=== PATIENT | male | born 1940 | race Caucasian/White ===

== ENCOUNTER 2017-03-07 22:06 | Emergency (ER) | payer MEDICARE | END 2017-03-07 22:25 | disposition left against medical advice (07) | LOC: DL.ED 22:06 | DX: Z53.21 Procedure and treatment not carried out due to patient leaving prior to being seen by health care provider (principal) ==

== ENCOUNTER 2021-07-02 16:05 | Emergency (ER) | payer OTHER, MEDICARE ==
[2021-07-02 16:31] VITALS: BP 100/72
[2021-07-02 17:30] LABS: ANION GAP 13.2 mEq/L (7-13)
[2021-07-02] MEDS ORDERED: predniSONE 20 MG Tab PO ONE (17:43)
[2021-07-02] MEDS ORDERED: Colchicine 0.6 MG Tab PO ONE ×2 (17:43→17:44)
[2021-07-02 18:45] VITALS: PULSE 78
== END 2021-07-02 18:16 | disposition home or self-care (01) ==
LOC: DL.ED 16:05
DX: M10.9 Gout, unspecified (principal); I10 Essential (primary) hypertension; I25.2 Old myocardial infarction; E11.9 Type 2 diabetes mellitus without complications; Z91.040 Latex allergy status; Z79.82 Long term (current) use of aspirin
CPT/HCPCS: 36415; 73130-RT; 80053; 84550; 85025; 86140; 99283-25; A9270-GY; J7512

== ENCOUNTER 2021-12-11 14:08 | Inpatient (IN) | payer MEDICARE ==
[2021-12-11] MEDS ORDERED: Acetaminophen 325 MG Tab PO PRN (15:11)
[2021-12-11] MEDS ORDERED: Ondansetron 4 MG Tab.DIS PO PRN (15:11)
[2021-12-11] MEDS ORDERED: Glucagon,Human Recombinant 1 MG Vial IM PRN (15:22)
[2021-12-11] MEDS ORDERED: 50% Dextrose in Water 50 ML Syringe IVPUSH PRN (15:22)
[2021-12-11] MEDS ORDERED: Albuterol 0.021% 0.63 MG/3 ML Neb Soln INH PRN (15:24)
[2021-12-11] MEDS ORDERED: hydrALAZINE 20 MG/ML SDV IVPUSH PRN (15:26)
[2021-12-11] MEDS ORDERED: [UNRECOGNIZED DRUG - OTHER] INJECT SCH (15:30)
[2021-12-11] MEDS ORDERED: CYANOCOBALAMIN 1000 MCG/ML INJECT SCH (15:30)
[2021-12-11 16:01] LABS: ANION GAP 16.7 mEq/L (7-13); CHLORIDE,CL 102 mmol/L (98-107); PTT,PARTIAL THROMBOPLSTIN TIME 31.2 SEC (22.0-34.0); SODIUM,NA 140 mmol/L (136-145)
[2021-12-11 16:03] LABS: ESTIMATED GFR 15 mL/min (>=60)
[2021-12-11] MEDS: Insulin Lispro 100 Units/ML 3 ML Vial SUBCUT SCH (17:15)
[2021-12-11] MEDS: oxyCODONE 5 MG Tab PO PRN (19:48)
[2021-12-11] MEDS: Gemfibrozil 600 MG Tab PO SCH (20:48)
[2021-12-11] MEDS: Oxybutynin 5 MG Tab.ER PO SCH (20:48)
[2021-12-12] MEDS: Sodium Chloride 0.9% 10 ML Syringe FLUSH PRN (00:25)
[2021-12-12] MEDS: Morphine 2 MG/ML SYRINGE IVPUSH PRN ×2 (00:25→22:20)
[2021-12-12] MEDS: Insulin Lispro 100 Units/ML 3 ML Vial SUBCUT SCH ×5 (00:26→20:47)
[2021-12-12] MEDS: oxyCODONE 5 MG Tab PO PRN ×4 (02:58→23:09)
[2021-12-12 07:32] LABS: HEMOGLOBIN A1C 5.9 % (<5.7)
[2021-12-12] MEDS ORDERED: Albuterol 6.7 GM Inhaler INH PRN (07:57)
[2021-12-12] MEDS ORDERED: Ferrous Sulfate Drops 15 MG/ML 50 ML Bottle PO SCH (09:00)
[2021-12-12] MEDS: Gemfibrozil 600 MG Tab PO SCH ×2 (09:52→20:37)
[2021-12-12] MEDS: Oxybutynin 5 MG Tab.ER PO SCH ×2 (09:52→20:41)
[2021-12-12] MEDS: Cholecalciferol (Vitamin D3) 25 MCG Tab PO SCH (09:52)
[2021-12-12] MEDS: Sodium Bicarbonate 650 MG Tab PO SCH ×2 (09:53→20:36)
[2021-12-12] MEDS: Finasteride 5 MG Tab PO SCH (09:53)
[2021-12-12] MEDS: Famotidine 20 MG Tab PO SCH (09:53)
[2021-12-12] MEDS: Metoprolol Tartrate 50 MG Tab PO SCH ×2 (09:57→20:37)
[2021-12-12] MEDS ORDERED: Colchicine 0.6 MG Tab PO ONE (12:34)
[2021-12-12] MEDS ORDERED: Pantoprazole 40 MG Tab.CR PO SCH (12:45)
[2021-12-12] MEDS: predniSONE 10 MG Tab PO SCH (13:16)
[2021-12-12] MEDS: Pantoprazole 40 MG Tab.CR PO SCH (13:19)
[2021-12-12] MEDS: atorvaSTATin 10 MG Tab PO SCH (20:37)
[2021-12-12] MEDS: Tamsulosin 0.4 MG Cap.ER PO SCH (20:39)
[2021-12-12] MEDS ORDERED: Tamsulosin 0.4 MG Cap.ER PO SCH (21:00)
[2021-12-13] MEDS: Pantoprazole 40 MG Tab.CR PO SCH (06:37)
[2021-12-13] MEDS: oxyCODONE 5 MG Tab PO PRN ×2 (06:38→21:15)
[2021-12-13] MEDS: Insulin Lispro 100 Units/ML 3 ML Vial SUBCUT SCH ×4 (09:25→21:30)
[2021-12-13] MEDS: Gemfibrozil 600 MG Tab PO SCH ×2 (09:27→21:23)
[2021-12-13] MEDS: Sodium Bicarbonate 650 MG Tab PO SCH ×2 (09:29→21:22)
[2021-12-13] MEDS: Metoprolol Tartrate 50 MG Tab PO SCH ×2 (09:29→21:27)
[2021-12-13] MEDS: Cholecalciferol (Vitamin D3) 25 MCG Tab PO SCH (09:29)
[2021-12-13] MEDS: predniSONE 10 MG Tab PO SCH (09:30)
[2021-12-13] MEDS: Oxybutynin 5 MG Tab.ER PO SCH ×2 (09:31→21:25)
[2021-12-13] MEDS: Finasteride 5 MG Tab PO SCH (09:31)
[2021-12-13] MEDS: Famotidine 20 MG Tab PO SCH (09:32)
[2021-12-13] MEDS: Colchicine 0.6 MG Tab PO SCH ×3 (11:14→23:20)
[2021-12-13] MEDS ORDERED: Fludrocortisone 0.1 MG Tab PO SCH (14:00)
[2021-12-13] MEDS: Morphine 2 MG/ML SYRINGE IVPUSH PRN (16:33)
[2021-12-13] MEDS: Sodium Chloride 0.9% 10 ML Syringe FLUSH PRN (16:35)
[2021-12-13] MEDS: atorvaSTATin 10 MG Tab PO SCH (21:23)
[2021-12-13] MEDS: Tamsulosin 0.4 MG Cap.ER PO SCH (21:26)
[2021-12-14] MEDS: Sodium Chloride 0.9% 10 ML Syringe FLUSH PRN (01:30)
[2021-12-14] MEDS: Morphine 2 MG/ML SYRINGE IVPUSH PRN (01:30)
[2021-12-14] MEDS: Colchicine 0.6 MG Tab PO SCH ×4 (06:30→23:02)
[2021-12-14] MEDS: Pantoprazole 40 MG Tab.CR PO SCH (06:30)
[2021-12-14 07:49] LABS: ANION GAP 16.5 mEq/L (7-13)
[2021-12-14] MEDS ORDERED: Allopurinol 100 MG Tab PO SCH (08:00)
[2021-12-14] MEDS: Insulin Lispro 100 Units/ML 3 ML Vial SUBCUT SCH ×3 (08:17→17:06)
[2021-12-14] MEDS: Finasteride 5 MG Tab PO SCH (09:28)
[2021-12-14] MEDS: Oxybutynin 5 MG Tab.ER PO SCH ×2 (09:29→20:10)
[2021-12-14] MEDS: Sodium Bicarbonate 650 MG Tab PO SCH ×2 (09:29→20:11)
[2021-12-14] MEDS: Cholecalciferol (Vitamin D3) 25 MCG Tab PO SCH (09:30)
[2021-12-14] MEDS: Metoprolol Tartrate 50 MG Tab PO SCH ×2 (09:30→20:18)
[2021-12-14] MEDS: Famotidine 20 MG Tab PO SCH (09:30)
[2021-12-14] MEDS: predniSONE 10 MG Tab PO SCH (09:31)
[2021-12-14] MEDS: Calcitriol 0.25 MCG Cap PO SCH (09:31)
[2021-12-14] MEDS: Gemfibrozil 600 MG Tab PO SCH ×2 (09:31→20:10)
[2021-12-14] MEDS: atorvaSTATin 10 MG Tab PO SCH (20:11)
[2021-12-14] MEDS: Tamsulosin 0.4 MG Cap.ER PO SCH (20:11)
[2021-12-14] MEDS: oxyCODONE 5 MG Tab PO PRN (21:28)
[2021-12-15] MEDS: Colchicine 0.6 MG Tab PO SCH (06:31)
[2021-12-15] MEDS: Pantoprazole 40 MG Tab.CR PO SCH (06:31)
[2021-12-15 07:58] VITALS: BP 144/68; PULSE 68
[2021-12-15] MEDS: Insulin Lispro 100 Units/ML 3 ML Vial SUBCUT SCH (08:52)
[2021-12-15] MEDS: Calcitriol 0.25 MCG Cap PO SCH (09:02)
[2021-12-15] MEDS: Sodium Bicarbonate 650 MG Tab PO SCH (09:02)
[2021-12-15] MEDS: Oxybutynin 5 MG Tab.ER PO SCH (09:03)
[2021-12-15] MEDS: Gemfibrozil 600 MG Tab PO SCH (09:03)
[2021-12-15] MEDS: Famotidine 20 MG Tab PO SCH (09:03)
[2021-12-15] MEDS: Finasteride 5 MG Tab PO SCH (09:03)
[2021-12-15] MEDS: predniSONE 10 MG Tab PO SCH (09:03)
[2021-12-15] MEDS: Metoprolol Tartrate 50 MG Tab PO SCH (09:04)
[2021-12-15] MEDS: Cholecalciferol (Vitamin D3) 25 MCG Tab PO SCH (09:04)
[2021-12-16] MEDS ORDERED: Allopurinol 100 MG Tab PO SCH (09:00)
== END 2021-12-15 10:00 | disposition home or self-care (01) | DRG 554 ==
LOC: DL.MS 14:08
PROVIDERS: ADMIT Internal Medicine; ATTEND Internal Medicine
DX: M10.9 Gout, unspecified (principal); N18.4 Chronic kidney disease, stage 4 (severe); C93.10 Chronic myelomonocytic leukemia not having achieved remission; J44.9 Chronic obstructive pulmonary disease, unspecified; J45.909 Unspecified asthma, uncomplicated; I25.10 Atherosclerotic heart disease of native coronary artery without angina pectoris; E11.22 Type 2 diabetes mellitus with diabetic chronic kidney disease; I12.9 Hypertensive chronic kidney disease with stage 1 through stage 4 chronic kidney disease, or unspecified chronic kidney disease; D63.1 Anemia in chronic kidney disease; F03.90 Unspecified dementia, unspecified severity, without behavioral disturbance, psychotic disturbance, mood disturbance, and anxiety; Z20.822 Contact with and (suspected) exposure to COVID-19; E11.65 Type 2 diabetes mellitus with hyperglycemia; R26.89 Other abnormalities of gait and mobility; K21.9 Gastro-esophageal reflux disease without esophagitis; N40.0 Benign prostatic hyperplasia without lower urinary tract symptoms; Z79.52 Long term (current) use of systemic steroids; Z85.528 Personal history of other malignant neoplasm of kidney; Z90.5 Acquired absence of kidney; Z79.4 Long term (current) use of insulin; Z79.899 Other long term (current) drug therapy; Z79.82 Long term (current) use of aspirin; Z98.42 Cataract extraction status, left eye; Z98.41 Cataract extraction status, right eye; I25.2 Old myocardial infarction; Z90.89 Acquired absence of other organs; Z98.890 Other specified postprocedural states
CPT/HCPCS: 36415; 73620-LT; 80053; 82947; 83036; 83615; 83735; 83970; 84100; 84443; 84550; 85025; 85610; 85651; 85730; 86140; 97162-GP; 97166-GO; 99222; 99232; 99238; A9270-GY; J1815-GY; J2270; J3490; J7512; U0002

== ENCOUNTER 2023-09-10 17:21 | Inpatient (IN) | payer MEDICARE ==
[2023-09-10 17:55] LABS: HEMATOCRIT 28.9 % (40.0-54.0); HEMOGLOBIN 9.4 g/dL (14.0-18.0); MEAN CORPUSCULAR HEMOGLOBIN 28.2 pg (27.0-34.0); MEAN CORPUSCULAR HGB CONC 32.5 g/dL (33.0-35.0); MEAN CORPUSCULAR VOLUME 86.8 fL (80-100); PLATELET COUNT,PLT 26 10^3/uL (150-450); RED BLOOD CELL COUNT 3.33 10^6/uL (4.6-6.2)
[2023-09-10 18:16] LABS: A/G RATIO 0.8; ALBUMIN 3.5 g/dL (3.4-5.0); ANION GAP 18.6 mEq/L (7-13); BILIRUBIN TOTAL 0.4 mg/dL (0.2-1.0); BUN/CREATININE RATIO 13.5 (No establ ref range); CALCIUM 8.3 mg/dL (8.5-10.1); CREATININE 4.68 mg/dL (0.70-1.30); EST CRCL DRUG DOSING (CG) 12.9 mL/min; MAGNESIUM 1.9 mg/dL (1.8-2.4); POTASSIUM,K 4.6 mmol/L (3.5-5.1)
[2023-09-10 18:16] LABS: LACTIC ACID 1.3 mmol/L (0.4-2.0)
[2023-09-10] MEDS: LORazepam 2 MG/ML SDV IVPUSH ONE (18:23)
[2023-09-10 18:43] LABS: EOSINOPHILS PERCENT MAN 1 % (1-3); LYMPHOCYTES PERCENT MAN 23 % (20-50); MONOCYTES PERCENT MAN 21 % (2-8); SEG NEUTROPHILS PERCENT MAN 55 % (42-75)
[2023-09-10 20:32] LABS: APPEARANCE,URINE CLEAR (CLEAR); BILIRUBIN,URINE NEGATIVE (NEGATIVE); COLOR,URINE YELLOW (YELLOW); GLUCOSE,URINE NEGATIVE (NEGATIVE); KETONES,URINE NEGATIVE (NEGATIVE); LEUKOCYTE ESTERASE,URINE NEGATIVE (NEGATIVE); NITRITE,URINE NEGATIVE (NEGATIVE); OCCULT BLOOD,URINE TRACE-LYSED (NEGATIVE); PROTEIN,URINE 100 (NEGATIVE); UROBILINOGEN,URINE 0.2 mg/dL (0.2-1.0)
[2023-09-10 20:45] LABS: AMORPHOUS SEDIMENT,URINE FEW /HPF (NOT SEEN); BACTERIA,URINE RARE /HPF (0-FEW/HPF); EPITHELIAL CELLS,URINE RARE /HPF (NOT SEEN); MUCUS,URINE RARE /LPF (NOT SEEN); RBC,URINE 0-5 /HPF (0-5); WBC,URINE 0-5 /HPF (0-5/HPF)
[2023-09-10] MEDS: Sodium Chloride 0.9% 1,000 ML IV ONE (21:21)
[2023-09-10] MEDS: Haloperidol Lactate 5 MG/ML SDV IVPUSH ONE (22:30)
[2023-09-10] MEDS ORDERED: Melatonin 3 MG Tab PO PRN (22:37)
[2023-09-10] MEDS ORDERED: Magnesium Hydroxide 400 MG/5 ML Susp 30 ML Cup PO PRN (22:37)
[2023-09-10] MEDS ORDERED: Docusate Sodium 100 MG Cap PO PRN (22:37)
[2023-09-10] MEDS ORDERED: Acetaminophen 325 MG Tab PO PRN (22:37)
[2023-09-10] MEDS ORDERED: Albuterol 6.7 GM Inhaler INH PRN (22:46)
[2023-09-11] MEDS ORDERED: Naloxone 2 MG/2 ML Syringe IVPUSH PRN (00:26)
[2023-09-11] MEDS: Morphine 2 MG/ML SYRINGE IVPUSH PRN (00:47)
[2023-09-11] MEDS: Sodium Chloride 0.9% 1,000 ML IV SCH (00:48)
[2023-09-11 06:05] LABS: HEMATOCRIT 28.3 % (40.0-54.0); HEMOGLOBIN 9.1 g/dL (14.0-18.0); MEAN CORPUSCULAR HEMOGLOBIN 28.3 pg (27.0-34.0); MEAN CORPUSCULAR HGB CONC 32.2 g/dL (33.0-35.0); MEAN CORPUSCULAR VOLUME 88.2 fL (80-100); RED BLOOD CELL COUNT 3.21 10^6/uL (4.6-6.2); WHITE BLOOD CELL COUNT,WBC 6.1 10^3/uL (5.0-10.0)
[2023-09-11 06:11] LABS: PLATELET COUNT,PLT 22 10^3/uL (150-450)
[2023-09-11 06:19] LABS: ANION GAP 8.3 mEq/L (7-13); CREATININE 4.67 mg/dL (0.70-1.30); EST CRCL DRUG DOSING (CG) 13.15 mL/min; POTASSIUM,K 4.3 mmol/L (3.5-5.1)
[2023-09-11 06:38] LABS: BAND PERCENT MAN 1 %; LYMPHOCYTES PERCENT MAN 29 % (20-50); MONOCYTES PERCENT MAN 27 % (2-8); SEG NEUTROPHILS PERCENT MAN 43 % (42-75)
[2023-09-11] MEDS: Metoprolol Tartrate 50 MG Tab PO SCH (08:52)
[2023-09-11] MEDS: Sodium Bicarbonate 650 MG Tab PO SCH ×2 (08:53→14:41)
[2023-09-11] MEDS: Finasteride 5 MG Tab PO SCH (08:53)
[2023-09-11] MEDS ORDERED: Heparin Sodium 5,000 Units/ML Vial SUBCUT SCH (09:00)
[2023-09-11] MEDS ORDERED: Tamsulosin 0.4 MG Cap.ER PO SCH (21:00)
[2023-09-12 06:30] LABS: HEMOGLOBIN 7.7 g/dL (14.0-18.0); MEAN CORPUSCULAR HEMOGLOBIN 28.1 pg (27.0-34.0); MEAN CORPUSCULAR HGB CONC 32.1 g/dL (33.0-35.0); MEAN CORPUSCULAR VOLUME 87.6 fL (80-100); PLATELET COUNT,PLT 25 10^3/uL (150-450); RED BLOOD CELL COUNT 2.74 10^6/uL (4.6-6.2); WHITE BLOOD CELL COUNT,WBC 35.9 10^3/uL (5.0-10.0)
[2023-09-12 06:55] LABS: ANION GAP 16.5 mEq/L (7-13); BILIRUBIN TOTAL 0.6 mg/dL (0.2-1.0); BUN/CREATININE RATIO 12.8 (No establ ref range); CALCIUM 7.3 mg/dL (8.5-10.1); EST CRCL DRUG DOSING (CG) 11.55 mL/min; POTASSIUM,K 4.5 mmol/L (3.5-5.1); PROTEIN TOTAL,TP 6.9 g/dL (6.4-8.2)
[2023-09-12 06:59] LABS: A/G RATIO 0.77; CREATININE 5.32 mg/dL (0.70-1.30)
[2023-09-12 07:51] LABS: BAND PERCENT MAN 5 %; LYMPHOCYTES PERCENT MAN 4 % (20-50); MONOCYTES PERCENT MAN 16 % (2-8); SEG NEUTROPHILS PERCENT MAN 75 % (42-75)
[2023-09-12] MEDS ORDERED: Patient's Own Medication 1 Each PO SCH ×2 (08:00→09:00)
[2023-09-12] MEDS: Cholecalciferol (Vitamin D3) 10 MCG Tab PO SCH (08:11)
[2023-09-12] MEDS: Torsemide 20 MG Tab PO SCH (08:11)
[2023-09-12] MEDS ORDERED: Sodium Chloride 0.9% 500 ML IV SCH (08:30)
[2023-09-12] MEDS: Lidocaine 5% 700 MG Patch TOP SCH (09:20)
[2023-09-12] MEDS ORDERED: LORazepam 2 MG/ML SDV IVPUSH PRN ×2 (10:34→10:48)
[2023-09-12] MEDS: Scopalamine 1mg/3day Transdermal Patch TOP ONE (11:04)
[2023-09-12 11:52] VITALS: BP 98/52; PULSE 89
[2023-09-12] MEDS: Morphine 4 MG/ML Syringe IVPUSH PRN (19:27)
[2023-09-12] MEDS: Morphine 10 MG/ML Syringe IVPUSH PRN (21:55)
[2023-09-12] MEDS: LORazepam 2 MG/ML SDV IVPUSH PRN (21:56)
[2023-09-13] MEDS: Atropine 1% Ophth Soln 5 ML Bottle SL PRN (11:52)
== END 2023-09-13 14:53 | disposition expired | DRG 951 ==
LOC: DL.ED 17:21 → DL.MS 21:13 → INTOOBSV 21:13 → OBSVTOIN 09-12 15:59 → DL.MS 09-12 16:00
PROVIDERS: ADMIT Family Medicine Adult Medicine; ATTEND Internal Medicine
DX: Z51.5 Encounter for palliative care (principal); S22.41XA Multiple fractures of ribs, right side, initial encounter for closed fracture; C93.10 Chronic myelomonocytic leukemia not having achieved remission; N18.4 Chronic kidney disease, stage 4 (severe); E87.1 Hypo-osmolality and hyponatremia; N17.9 Acute kidney failure, unspecified; Z66 Do not resuscitate; F03.90 Unspecified dementia, unspecified severity, without behavioral disturbance, psychotic disturbance, mood disturbance, and anxiety; I12.9 Hypertensive chronic kidney disease with stage 1 through stage 4 chronic kidney disease, or unspecified chronic kidney disease; Z91.048 Other nonmedicinal substance allergy status; W18.30XA Fall on same level, unspecified, initial encounter; Y92.009 Unspecified place in unspecified non-institutional (private) residence as the place of occurrence of the external cause; I25.10 Atherosclerotic heart disease of native coronary artery without angina pectoris; N40.1 Benign prostatic hyperplasia with lower urinary tract symptoms; E11.22 Type 2 diabetes mellitus with diabetic chronic kidney disease; K21.9 Gastro-esophageal reflux disease without esophagitis; J44.9 Chronic obstructive pulmonary disease, unspecified; W17.89XA Other fall from one level to another, initial encounter; D63.1 Anemia in chronic kidney disease; E53.8 Deficiency of other specified B group vitamins; S40.012A Contusion of left shoulder, initial encounter; M19.90 Unspecified osteoarthritis, unspecified site; E21.3 Hyperparathyroidism, unspecified; D69.6 Thrombocytopenia, unspecified; F41.9 Anxiety disorder, unspecified; M54.50 Low back pain, unspecified; G47.30 Sleep apnea, unspecified; R33.8 Other retention of urine; H54.7 Unspecified visual loss; G89.29 Other chronic pain; M10.9 Gout, unspecified; R31.0 Gross hematuria; R53.1 Weakness; Z88.8 Allergy status to other drugs, medicaments and biological substances; Z85.528 Personal history of other malignant neoplasm of kidney; Z79.51 Long term (current) use of inhaled steroids; Z98.49 Cataract extraction status, unspecified eye; Z79.899 Other long term (current) drug therapy; Z98.890 Other specified postprocedural states; Z90.5 Acquired absence of kidney; I25.2 Old myocardial infarction
CPT/HCPCS: 36415; 51798; 70450; 71045; 71250; 72125; 72192; 74150; 80048; 80053; 81001; 82306; 82550; 83605; 83690; 83735; 84484; 85025; 93005; 93010; 96374; 97161-GP; 97165-GO; 99284; 99285-25; A9270-GY; J1630; J2060; J2270; J7030